=== PATIENT | female | born 1985 | race African-American/Black ===

== ENCOUNTER 2016-12-25 10:47 | Emergency (ER) | payer SELFPAY ==
[~2016-12-25] VITALS: Ht 175.3 cm; Wt 90.7 kg
[2016-12-25 11:37] LABS: Basophils # (auto) 0 uL; Basophils % (auto) 0.4 % (0.0-2.0); CONDITION Y; Eosinophils # (auto) 0.1 uL; Eosinophils % (auto) 1.2 % (0.0-7.0); Hematocrit 40.3 % (36.0-46.0); Hemoglobin 13.8 g/dL (12.2-16.2); Lymphocytes % (auto) 37.8 % (10.0-50.0); Mean Corpuscular Hemoglobin 32.1 pg (28.0-32.0); Mean Corpuscular Hgb Conc. 34.3 g/dL (32.0-36.0); Mean Corpuscular Volume 93.4 fL (80.0-100.0); Mean Platelet Volume 7.9 fL (7.4-10.4); Monocytes # (auto) 0.4 uL; Monocytes % (auto) 7.1 % (0.0-12.0); Neutrophils # (auto) 2.9 uL; Neutrophils % (auto) 53.5 % (37.0-80.0); Platelet Count (auto) 293 10^3/uL (140-450); Red Cell Distribution Width 12.5 % (11.6-16.0); White Blood Cell 5.4 10^3/uL (4.4-10.8)
[2016-12-25 12:03] LABS: Albumin 4.3 g/dL (3.4-5.0); BUN/Creatinine Ratio 14.1; Bilirubin, Total 1.1 mg/dL (0.2-1.0); Calcium 9.3 mg/dL (8.5-10.1); Total Protein 7.9 g/dL (6.4-8.2)
[2016-12-25] MEDS ORDERED: KETOROLAC TROMETH 60MG/2ML VIAL IM ONE (15:30)
[2016-12-25 16:53] LABS: Urine Bilirubin Negative (Negative); Urine Blood Negative /uL (Negative); Urine Color Yellow (Yellow); Urine Glucose Normal (Normal); Urine Ketone Negative (Negative); Urine Mucus FEW (None Seen); Urine Nitrite Negative (Negative); Urine RBC 2 /hpf (0 - 4); Urine Squamous Epithelial Cell FEW /hpf (<5); Urine Urobilinogen Normal (Negative); Urine pH 5.5 (5.0-8.0)
[2016-12-25 17:20] VITALS: BP 139/70
== END 2016-12-25 17:19 | disposition home or self-care (01) ==
LOC: ER 10:55
DX: I10 Essential (primary) hypertension (principal); M54.9 Dorsalgia, unspecified; R10.9 Unspecified abdominal pain
CPT/HCPCS: 36415; 70450; 72100; 80053; 81001; 84702; 85025; 96372; 99285; J1885